=== PATIENT | male | born 1970 | race Caucasian/White ===

== ENCOUNTER → 2024-08-16 12:51 | Outpatient (REF) | payer OTHER, SELFPAY | LOC: RAD 12:51 | PROVIDERS: ATTENDING PHYSICIAN Family Medicine | DX: M54.59 Other low back pain (principal); M54.9 Dorsalgia, unspecified; M54.2 Cervicalgia; R51.9 Headache, unspecified | CPT/HCPCS: 72052; 72072; 72110 ==